=== PATIENT | female | born 1975 | race African-American/Black ===

== ENCOUNTER 2018-01-24 15:23 | Emergency (ER) | payer OTHER ==
[~2018-01-24] VITALS: Ht 165.1 cm; Wt 85.0 kg
[2018-01-24] MEDS ORDERED: ENALAPRIL 5MG TABLET PO SCH (17:15)
[2018-01-24 19:21] LABS: CHLORIDE 108 mEq/L (98-107)
[2018-01-24 20:26] VITALS: BP 142/97
== END 2018-01-24 20:29 | disposition home or self-care (01) ==
LOC: ER 20:21
DX: R51 Headache (principal); I10 Essential (primary) hypertension; F17.200 Nicotine dependence, unspecified, uncomplicated
CPT/HCPCS: 36415; 80048; 81025; 99283; Z7610